=== PATIENT | female | born 1975 | race Hispanic/Latino ===

== ENCOUNTER 2016-12-06 22:31 | Emergency (ER) | payer OTHER ==
[2016-12-06 22:38] VITALS: BP 186/65; PULSE 116; RESP 17; TEMP 97.9; O2SAT 98
--- NOTE | 2016-12-06 23:33 | ED PDOC ---
HPI: Wound Care - HPI Time Seen by Provider: 12/06/16 23:24 Chief Complaint (Nursing): Abnormal Skin Integrity Chief Complaint (Provider): abscess History Per: Patient Additional Complaint(s): 41yo F in ED for eval of worsening abscess wtih redness an pain to lower abd x 4days. admits she tried to pick at it, but became worse. denies fever, chills, nausea or vomiting. admits to [facility]. Against Medical Advice - AMA Patient Left Against Medical Advice: The patient declines admission to the hospital and wishes to leave the Emergency Department. This action is against my medical advice. This decision was made with informed refusal. The patient was told that admission to the hospital is necessary. Explanation of the reasons why were discussed. The risks of leaving were explained to the patient and include, but are not limited to, worsening of known or currently unknown conditions, permanent disability and from undiagnosed or untreated conditions. The patient has the capacity to make this informed decision and understands my explanation of the current medical problem and risks of leaving. The patient voluntarily accepts these risks and signed an AMA form documenting our conversation. The patient was given the opportunity to ask questions and reconsider. The patient was encouraged to return to the Emergency Department at any time for further care. Past Medical History Reviewed: Historical Data, Nursing Documentation, Vital Signs Vital Signs: Last Vital Signs Temp 97.9 F 12/06/16 22:35 Pulse 116 H 12/06/16 22:35 Resp 17 12/06/16 22:35 BP 186/65 H 12/06/16 22:35 Pulse Ox 98 12/06/16 22:35 - Medical History PMH: Anxiety, Asthma, Bipolar Disorder, Diabetes, HTN Denies: Chronic Kidney Disease - Family History Family History: States: Unknown Family Hx - Immunization History Hx Tetanus Toxoid Vaccination: No Hx Influenza Vaccination: No Hx Pneumococcal Vaccination: No - Home Medications Home Medications: Ambulatory Orders Medication Instructions Recorded No Known Home Med 0 tab PO DAILY 03/22/15 Vitamins2 [Prenate Ultra] 1 tab PO DAILY #30 tab 03/22/15 Guaifenesin/Pseudoephedrne HCl 1 tab PO DAILY PRN #30 ter 02/14/16 [Mucinex D 600 mg-60 mg] Promethazine HCl/Codeine 5 ml PO HS #80 ml 02/14/16 [Promethazine HCl-Codeine Phosphate 10 mg/5 ml] Methyl Salicylate/Menthol [Icy Hot 1 cre TP DAILY #1 cre 02/17/16 10%-30%] guaiFENesin [guaifENESIN] 100 mg PO DAILY #30 udc 02/17/16 Cephalexin [cephalexin] 500 mg PO BID #20 cap 12/06/16 Sulfamethoxazole/Trimethoprim 1 tab PO BID #14 tab 12/06/16 [Bactrim DS 800 mg-160 mg] - Allergies Allergies/Adverse Reactions: Allergies Allergy/AdvReac Type Severity Reaction Status Date / Time No Known Allergies Allergy Verified 07/09/14 06:43 Review of Systems ROS Statement: Except As Marked, All Systems Reviewed And Found Negative Constitutional: Negative for: Fever, Chills Skin: Positive for: Lesions Physical Exam - Reviewed Nursing Documentation Reviewed: Yes Vital Signs Reviewed: Yes - Physical Exam Appears: Positive for: Non-toxic, No Acute Distress, Uncomfortable (in pain) Head Exam: Positive for: ATRAUMATIC, NORMAL INSPECTION, NORMOCEPHALIC Skin: Positive for: Normal Color, Warm, DRY Cardiovascular/Chest: Positive for: Regular Rate, Rhythm Respiratory: Positive for: CNT, Normal Breath Sounds Gastrointestinal/Abdominal: Positive for: Other (mid abdominal area-streaking, warmth, with central lesions with drainage of blood and pus 2x2. ) Neurologic/Psych: Positive for: Alert, Oriented - ECG O2 Sat by Pulse Oximetry: 98 Medical Decision Making Medical Decision Making: pt refuses blood work, IV abx or imagining. Pt explained the risk of infection and possibility of infection in blood strem and or . Pt states her children are alone in the house and she will come back tomorrow for further eval and is requesting pain control and abx. Pt again explained the risk, but will sign out AMA. will be d/c with kelfex and bactirm advised to f.u with pmd and advised to use warm compress Disposition - Clinical Impression Clinical Impression: Abscess, Cellulitis - Patient ED Disposition Is Patient to be Admitted: No Counseled Patient/Family Regarding: Need For Followup, Rx Given - Disposition Disposition: Routine/Home Disposition Time: 23:38 Condition: UNKNOWN Prescriptions: Sulfamethoxazole/Trimethoprim [Bactrim DS 800 mg-160 mg] 1 tab PO BID #14 tab Cephalexin [cephalexin] 500 mg PO BID #20 cap Instructions: Abscess (ED)
[2016-12-06] MEDS ORDERED: Tmp-Smz 800 mg-160 mg DS Tab ONE (23:34)
[2016-12-06] MEDS ORDERED: Tmp-Smz 800 mg-160 mg DS Tab PO STA (23:37)
== END 2016-12-06 23:59 | disposition left against medical advice (07) ==
LOC: H.ER 22:31
DX: L02.91 Cutaneous abscess, unspecified (principal); E11.9 Type 2 diabetes mellitus without complications; F31.9 Bipolar disorder, unspecified; I10 Essential (primary) hypertension

== ENCOUNTER 2017-01-31 13:00 | Emergency (ER) | payer MEDICAID, OTHER ==
[2017-01-31 13:07] VITALS: TEMP 98
[2017-01-31] MEDS ORDERED: Sodium Chloride 0.9% 1,000 ML IV STA (13:25)
--- NOTE | 2017-01-31 13:33 | ED PDOC ---
HPI: Psych/Substance Abuse Time Seen by Provider: 01/31/17 13:20 Chief Complaint (Nursing): Substance Abuse Chief Complaint (Provider): Substance Abuse History Per: Patient History/Exam Limitations: no limitations Onset/Duration Of Symptoms: Hrs (prior to arrival ) Additional History Per: EMS Additional Complaint(s): 13:20 Aida Porter, 42 year old female accompanied by EMS presents to the ED on 01/31. The patient was found sitting in the street by EMS. The patient states that she became dazed and dizzy after ingestion of Tramadol this morning. She denies any other ingestion of substance, headache, chest pain, palpitations, or any other medical complaints. The patient has a past medical history inclusive of diabetes, hypertension, asthma and bipolar disorder. The patient is awake and confused. Past Medical History Reviewed: Historical Data, Nursing Documentation, Vital Signs Vital Signs: Last Vital Signs Temp 98 F 01/31/17 13:04 Pulse 100 H 01/31/17 13:04 Resp 16 01/31/17 13:04 BP 170/100 H 01/31/17 13:04 Pulse Ox 98 01/31/17 13:04 - Medical History PMH: Anxiety, Asthma, Bipolar Disorder, Diabetes, HTN Denies: Alzheimer's Disease, Anemia, Arthritis, Atrial Fibrillation, Bronchitis, Cardia Arrhythmia, CHF, COPD, Crohn's Disease, Dementia, Depression , Diverticulitis, Emphysema, Fractures, Gastritis, Gall Bladder Disease, HIV, Hypercholesterolemia, Hyperthyroidism, Hypothyroidism, Kidney Stones, Migraine, Mitral Valve Prolapse, Multiple Sclerosis, Osteoporosis, Pancreatitis, Paranoia , Parkinson's Disease, Peripheral Edema, Pneumonia, Post Traumatic Stress Disorder, Pulmonary Embolism, Chronic Kidney Disease, Rheumatoid Arthritis, Schizophrenia, Seizures, Sickle Cell Disease, Sexually Transmitted Disease, Sleep Apnea, TIA - Surgical History Surgical History: Denies: Appendectomy, CABG, Carotid Endarterectomy, Cholecystectomy, Coronary Stent, Pacemaker, Tonsillectomy - Family History Family History: States: Unknown Family Hx - Immunization History Hx Tetanus Toxoid Vaccination: No Hx Influenza Vaccination: No Hx Pneumococcal Vaccination: No - Home Medications Home Medications: Ambulatory Orders Medication Instructions Recorded Albuterol HFA [Ventolin HFA 90 2 puff IH [id number] 01/21/17 mcg/actuation (8 g)] Alprazolam [Xanax] 2 mg PO 01/21/17 Budesonide/Formoterol Fumarate 1 aer IH 01/21/17 [Symbicort] oxyCODONE [oxyCODONE Immediate 30 mg PO BID 01/21/17 Release Tab] traMADol [Ultram] 50 mg PO TID PRN #15 tab 01/22/17 - Allergies Allergies/Adverse Reactions: Allergies Allergy/AdvReac Type Severity Reaction Status Date / Time No Known Allergies Allergy Verified 12/14/16 03:41 Review of Systems Cardiovascular: Negative for: Chest Pain, Palpitations Neurological: Positive for: Dizziness, Other (dazed; awake and confused ). Negative for: Headache Physical Exam - Reviewed Nursing Documentation Reviewed: Yes Vital Signs Reviewed: Yes - Physical Exam Appears: Positive for: Non-toxic, No Acute Distress Head Exam: Positive for: ATRAUMATIC, NORMOCEPHALIC Skin: Positive for: Normal Color, Warm, Dry Eye Exam: Positive for: Normal appearance, PERRL ENT: Positive for: Normal ENT Inspection Neck: Positive for: Normal, Painless ROM Cardiovascular/Chest: Positive for: Regular Rate, Rhythm, Chest Non Tender. Negative for: Gallop, Murmur Respiratory: Positive for: Normal Breath Sounds. Negative for: Respiratory Distress Gastrointestinal/Abdominal: Positive for: Normal Exam, Soft. Negative for: Tenderness Back: Positive for: Normal Inspection Extremity: Positive for: Normal ROM Neurologic/Psych: Positive for: Alert (awake), Oriented (x1), Other (slurred speech). Negative for: Motor/Sensory Deficits (and no focal deficits ) - Laboratory Results Result Diagrams: 01/31/17 14:00 01/31/17 14:00 - ECG O2 Sat by Pulse Oximetry: 98 (RA) Pulse Ox Interpretation: Normal - Progress Re-evaluation Time: 17:41 Condition: Improved (Awake alert oriented x 3 no focal neuro deficits. Denies SI /HI) Medical Decision Making Medical Decision Makin:20 Initial Impression: 42 year old female accompanied by EMS with confusion, dazed look, and dizziness. Initial Plan: * ED EKG Stat * Alcohol Serum Stat * COMP Metabolic Panel Stat * Drug Screen, Urine Stat * ED Urine (POC) Stat * ED Urine Dipstick (POC) Stat * CBC (With Differential) Stat * Sodium Chloride 0.9% 1,000 ml IV 100 mls/hr * Reevaluation Scribe Attestation: Documented by Steph Manuel, acting as a scribe for Antonio Santiago MD. Provider Scribe Attestation: All medical record entries made by the Scribe were at my direction and personally dictated by me. I have reviewed the chart and agree that the record accurately reflects my personal performance of the history, physical exam, medical decision making, and the department course for this patient. I have also personally directed, reviewed, and agree with the discharge instructions and disposition. Disposition - Clinical Impression Clinical Impression: Polysubstance abuse - Patient ED Disposition Is Patient to be Admitted: No Counseled Patient/Family Regarding: Studies Performed, Diagnosis, Need For Followup, Rx Given - Disposition Referrals: [facility] [Outside] Disposition: Routine/Home Disposition Time: 17:42 Condition: FAIR Instructions: Polysubstance Abuse (ED)
[2017-01-31 14:14] LABS: BASO % 0.2 % (0.0-2.0); EOS # 0.2 K/uL (0.0-0.7); EOS % 1.5 % (0.0-4.0); HEMATOCRIT 43.5 % (34.0-47.0); LYMPH # 4.4 K/uL (1.0-4.3); LYMPH % 32.4 % (20.0-40.0); MEAN CELL VOLUME 89.7 fl (81.0-99.0); MEAN CORPUSCULAR HEMOGLOBIN 29.6 pg (27.0-31.0); MEAN PLATELET VOLUME 10.5 fl (7.2-11.7); MONO # 0.9 K/uL (0.0-0.8); MONO % 6.3 % (0.0-10.0); NEUT # 8.2 K/uL (1.8-7.0); NEUT % 59.6 % (50.0-75.0); NRBC % 0.1 % (0.0-0.0); RED CELL DISTRIBUTION WIDTH 14.2 % (11.5-14.5); WHITE BLOOD COUNT 13.7 K/uL (4.8-10.8)
[2017-01-31 14:23] LABS: ALB/GLOB RATIO 1.5 (1.0-2.1); ALCOHOL SERUM < 10 mg/dl (0-10); ALKALINE PHOSPHATASE 93 U/L (38-126); ALT/SGPT 36 U/L (9-52); AST/SGOT 22 U/L (14-36); BILIRUBIN,TOTAL 0.9 mg/dl (0.2-1.3); BLOOD UREA NITROGEN 10 mg/dl (7-17); CALCIUM 9.5 mg/dL (8.4-10.2); CARBON DIOXIDE 23 mmol/L (22-30); CHLORIDE 105 mmol/L (98-107); GFR AFRICAN-AMERICAN > 60; GLUCOSE,RANDOM 95 mg/dL (65-105); POTASSIUM 4.2 MMOL/L (3.6-5.0); SODIUM 141 mmol/l (132-148); TOTAL PROTEIN 7.9 G/DL (6.3-8.2)
[2017-01-31 18:36] VITALS: BP 152/90; PULSE 90; RESP 18; O2SAT 99
--- NOTE | 2017-02-01 01:18 | CARD ---
APPROVED REPORT EKG Measurement Heart [id number] <Conclusion> Normal sinus rhythm Possible Left atrial enlargement Anteroseptal infarct, age undetermined Abnormal ECG
== END 2017-01-31 18:00 | disposition home or self-care (01) ==
LOC: H.ER 13:00
DX: F19.10 Other psychoactive substance abuse, uncomplicated (principal); E11.9 Type 2 diabetes mellitus without complications; F31.9 Bipolar disorder, unspecified; F41.9 Anxiety disorder, unspecified; I10 Essential (primary) hypertension; J45.909 Unspecified asthma, uncomplicated; R42 Dizziness and giddiness

== ENCOUNTER 2017-04-09 04:51 | Emergency (ER) | payer MEDICAID ==
[2017-04-09 04:59] VITALS: BP 173/88; RESP 16; TEMP 97.3; O2SAT 96
[2017-04-09] MEDS ORDERED: Albuterol-Ipratrop 3 mg / 0.5 (3 ml) UD INH STA (05:21)
[2017-04-09 06:06] VITALS: PULSE 72
--- NOTE | 2017-04-09 06:06 | ED PDOC ---
HPI: Psych/Substance Abuse Time Seen by Provider: 04/09/17 05:08 Chief Complaint (Nursing): Chest Pain History Per: Patient, EMS History/Exam Limitations: no limitations Onset/Duration Of Symptoms: Days (1) Current Symptoms Are (Timing): Better Suicide/Self Injury Attempted (Context): None Modifying Factor(s): None Severity: Mild Pain Scale Rating Of: 0 Associated Symptoms: Anxiety Involuntary Hold By: Local [employer] Past Medical History Reviewed: Historical Data, Nursing Documentation, Vital Signs Vital Signs: Last Vital Signs Temp 97.3 F L 04/09/17 04:53 Pulse 82 04/09/17 04:53 Resp 16 04/09/17 04:53 BP 173/88 H 04/09/17 04:53 Pulse Ox 96 04/09/17 04:53 - Medical History PMH: Anxiety, Asthma, Bipolar Disorder, Diabetes, HTN Denies: Alzheimer's Disease, Anemia, Arthritis, Atrial Fibrillation, Bronchitis, Cardia Arrhythmia, CHF, COPD, Crohn's Disease, Dementia, Depression , Diverticulitis, Emphysema, Fractures, Gastritis, Gall Bladder Disease, HIV, Hypercholesterolemia, Hyperthyroidism, Hypothyroidism, Kidney Stones, Migraine, Mitral Valve Prolapse, Multiple Sclerosis, Osteoporosis, Pancreatitis, Paranoia , Parkinson's Disease, Peripheral Edema, Pneumonia, Post Traumatic Stress Disorder, Pulmonary Embolism, Chronic Kidney Disease, Rheumatoid Arthritis, Schizophrenia, Seizures, Sickle Cell Disease, Sexually Transmitted Disease, Sleep Apnea, TIA - Surgical History Surgical History: Denies: Appendectomy, CABG, Carotid Endarterectomy, Cholecystectomy, Coronary Stent, Pacemaker, Tonsillectomy - Family History Family History: States: Unknown Family Hx - Immunization History Hx Tetanus Toxoid Vaccination: No Hx Influenza Vaccination: No Hx Pneumococcal Vaccination: No - Home Medications Home Medications: Ambulatory Orders Medication Instructions Recorded Albuterol HFA [Ventolin HFA 90 2 puff IH [id number] 01/21/17 mcg/actuation (8 g)] Alprazolam [Xanax] 2 mg PO 01/21/17 Budesonide/Formoterol Fumarate 1 aer IH 01/21/17 [Symbicort] oxyCODONE [oxyCODONE Immediate 30 mg PO BID 01/21/17 Release Tab] traMADol [Ultram] 50 mg PO TID PRN #15 tab 01/22/17 - Allergies Allergies/Adverse Reactions: Allergies Allergy/AdvReac Type Severity Reaction Status Date / Time No Known Allergies Allergy Verified 12/14/16 03:41 Review of Systems ROS Statement: Except As Marked, All Systems Reviewed And Found Negative Cardiovascular: Positive for: Chest Pain Respiratory: Positive for: Shortness of Breath Physical Exam - Reviewed Nursing Documentation Reviewed: Yes Vital Signs Reviewed: Yes - Physical Exam Appears: Positive for: Well, Non-toxic, No Acute Distress Skin: Positive for: Warm, Dry Eye Exam: Positive for: EOMI, PERRL Cardiovascular/Chest: Positive for: Regular Rate, Rhythm. Negative for: Tachycardia Respiratory: Positive for: Normal Breath Sounds, Wheezing. Negative for: Rales , Rhonchi Gastrointestinal/Abdominal: Positive for: Soft. Negative for: Tenderness Extremity: Positive for: Normal ROM Neurologic/Psych: Positive for: Alert, Oriented - ECG ECG: Positive for: Interpreted By Me, Viewed By Me ECG Rhythm: Positive for: Normal QRS, Normal ST Segment, Sinus Rhythm. Negative for: Nonspecific Changes Rate: 72 O2 Sat by Pulse Oximetry: 96 - Progress Re-evaluation Time: 06:00 Condition: Re-examined, Improved Disposition - Clinical Impression Clinical Impression: Asthma - Disposition Referrals: Jemal Gordillo MD [Primary Care Provider] - Disposition Time: 06:00 Condition: GOOD Additional Instructions: Patient is medically and psychiatrically clear for incarceration. Instructions: Asthma (ED)
--- NOTE | 2017-04-09 10:08 | CARD ---
APPROVED REPORT EKG Measurement Heart [id number] <Conclusion> Normal sinus rhythm Anterior infarct, age undetermined Abnormal ECG
== END 2017-04-09 06:18 ==
LOC: H.ER 04:51
DX: J45.909 Unspecified asthma, uncomplicated (principal); E11.9 Type 2 diabetes mellitus without complications; F31.9 Bipolar disorder, unspecified; F41.9 Anxiety disorder, unspecified; I10 Essential (primary) hypertension

== ENCOUNTER 2017-06-13 11:43 | Emergency (ER) | payer MEDICAID ==
[2017-06-13 11:55] VITALS: BP 150/107; PULSE 94; RESP 18; TEMP 97.6; O2SAT 100
[2017-06-13] MEDS ORDERED: Sodium Chloride 0.9% 1,000 ML IV STA (12:21)
[2017-06-13 13:23] LABS: BASO # 0.2 K/uL (0.0-0.2); BASO % 1.1 % (0.0-2.0); EOS # 0.3 K/uL (0.0-0.7); EOS % 2.3 % (0.0-4.0); HEMATOCRIT 45.6 % (34.0-47.0); LYMPH # 2.9 K/uL (1.0-4.3); LYMPH % 21.2 % (20.0-40.0); MEAN CORPUSCULAR HEMOGLOBIN 30.3 pg (27.0-31.0); MEAN CORPUSCULAR HGB CONC 32.6 g/dL (33.0-37.0); MEAN PLATELET VOLUME 9.8 fl (7.2-11.7); MONO # 0.8 K/uL (0.0-0.8); MONO % 5.9 % (0.0-10.0); NEUT # 9.6 K/uL (1.8-7.0); NEUT % 69.5 % (50.0-75.0); NRBC % 0.1 % (0.0-0.0); RED CELL DISTRIBUTION WIDTH 14.4 % (11.5-14.5); WHITE BLOOD COUNT 13.8 K/uL (4.8-10.8)
--- NOTE | 2017-06-13 13:28 | RAD ---
HISTORY: cough COMPARISON: No prior. TECHNIQUE: Chest PA and lateral FINDINGS: LUNGS: No active pulmonary disease. PLEURA: No significant pleural effusion identified. No pneumothorax apparent. CARDIOVASCULAR: Aorta is uncoiled. A portion of this may be related to obliquity of the radiograph. Heart is mildly enlarged. OSSEOUS STRUCTURES: No significant abnormalities. VISUALIZED UPPER ABDOMEN: Normal. OTHER FINDINGS: None. IMPRESSION: No focal infiltrate or CHF. Mild cardiomegaly. Possible Atherosclerotic change of the aorta.
[2017-06-13 13:32] LABS: ALB/GLOB RATIO 1.3 (1.0-2.1); ALKALINE PHOSPHATASE 84 U/L (38-126); ALT/SGPT 29 U/L (9-52); AST/SGOT 32 U/L (14-36); BILIRUBIN,TOTAL 0.9 mg/dl (0.2-1.3); BLOOD UREA NITROGEN 12 mg/dl (7-17); CALCIUM 9.7 mg/dL (8.4-10.2); CARBON DIOXIDE 23 mmol/L (22-30); CHLORIDE 106 mmol/L (98-107); GFR AFRICAN-AMERICAN > 60; GLUCOSE,RANDOM 128 mg/dL (65-105); SODIUM 144 mmol/l (132-148); TOTAL PROTEIN 8.2 G/DL (6.3-8.2)
[2017-06-13 13:38] LABS: POTASSIUM 4.4 MMOL/L (3.6-5.0)
--- NOTE | 2017-06-13 14:04 | ED PDOC ---
HPI: General Adult Time Seen by Provider: 06/13/17 12:08 Chief Complaint (Nursing): Flu-like Symptoms Chief Complaint (Provider): flu like symptoms Additional Complaint(s): 42yo F inEd with 3d of generalized body aches, subjective fever, swelling to LE , cough(nonproductive) and diarrhea with vomiting. sick contact is nephew with similar symptoms. no travel outside the [place] . PT states she urinate often unable to hold her urine. no hematuira. no CHRISTINE, dizziness, chills Past Medical History Reviewed: Historical Data, Nursing Documentation, Vital Signs Vital Signs: Last Vital Signs Temp 97.6 F 06/13/17 11:48 Pulse 94 H 06/13/17 11:48 Resp 18 06/13/17 11:48 BP 150/107 H 06/13/17 11:48 Pulse Ox 100 06/13/17 14:05 - Medical History PMH: Anxiety, Asthma, Bipolar Disorder, Diabetes, HTN Denies: Alzheimer's Disease, Anemia, Arthritis, Atrial Fibrillation, Bronchitis, Cardia Arrhythmia, CHF, COPD, Crohn's Disease, Dementia, Depression , Diverticulitis, Emphysema, Fractures, Gastritis, Gall Bladder Disease, Hepatitis, HIV, Hypercholesterolemia, Hyperthyroidism, Hypothyroidism, Kidney Stones, Migraine, Mitral Valve Prolapse, Multiple Sclerosis, Osteoporosis, Pancreatitis, Paranoia, Parkinson's Disease, Peripheral Edema, Pneumonia, Post Traumatic Stress Disorder, Pulmonary Embolism, Chronic Kidney Disease, Rheumatoid Arthritis, Schizophrenia, Seizures, Sickle Cell Disease, Sexually Transmitted Disease, Sleep Apnea, TIA - Surgical History Surgical History: Denies: Appendectomy, CABG, Carotid Endarterectomy, Cholecystectomy, Coronary Stent, Pacemaker, Tonsillectomy - Family History Family History: States: Unknown Family Hx - Immunization History Hx Tetanus Toxoid Vaccination: No Hx Influenza Vaccination: No Hx Pneumococcal Vaccination: No - Home Medications Home Medications: Ambulatory Orders Medication Instructions Recorded Albuterol HFA [Ventolin HFA 90 2 puff IH [id number] 01/21/17 mcg/actuation (8 g)] Alprazolam [Xanax] 2 mg PO 01/21/17 Budesonide/Formoterol Fumarate 1 aer IH 01/21/17 [Symbicort] oxyCODONE [oxyCODONE Immediate 30 mg PO BID 01/21/17 Release Tab] traMADol [Ultram] 50 mg PO TID PRN #15 tab 01/22/17 Nitrofurantoin Macrocrystals 100 mg PO BID #14 cap 06/13/17 [Macrobid] - Allergies Allergies/Adverse Reactions: Allergies Allergy/AdvReac Type Severity Reaction Status Date / Time No Known Allergies Allergy Verified 12/14/16 03:41 Review of Systems ROS Statement: Except As Marked, All Systems Reviewed And Found Negative Constitutional: Positive for: Fever, Malaise Gastrointestinal: Positive for: Vomiting, Diarrhea Skin: Negative for: Rash Physical Exam - Reviewed Nursing Documentation Reviewed: Yes Vital Signs Reviewed: Yes - Physical Exam Appears: Positive for: Non-toxic, No Acute Distress, Uncomfortable. Negative for: Well (unkept) Head Exam: Positive for: ATRAUMATIC, NORMAL INSPECTION, NORMOCEPHALIC Skin: Positive for: Normal Color, Warm, DRY Eye Exam: Positive for: EOMI, Normal appearance, PERRL ENT: Positive for: Normal ENT Inspection Neck: Positive for: Normal, Painless ROM Cardiovascular/Chest: Positive for: Regular Rate, Rhythm Respiratory: Positive for: CNT, Normal Breath Sounds Gastrointestinal/Abdominal: Positive for: Normal Exam, Bowel Sounds, Soft. Negative for: Tenderness Back: Positive for: Normal Inspection Extremity: Positive for: Normal ROM. Negative for: Swelling Neurologic/Psych: Positive for: Alert, Oriented - Laboratory Results Result Diagrams: 06/13/17 12:28 06/13/17 12:28 - ECG O2 Sat by Pulse Oximetry: 100 - Radiology X-Ray: Read By Radiologist X-Ray Interpretation: No Acute Disease, Cardiomegaly - Progress ED Course And Treament: PT given Orders Category Date Time Status COMP METABOLIC PANEL Stat Chem 06/13/17 12:28 Completed CHEST TWO VIEWS (PA/LAT) [RAD] Stat Exams 06/13/17 12:21 Completed CBC (WITH DIFFERENTIAL) Stat MAGGI 06/13/17 12:28 Completed Ketorolac [Toradol] Med 06/13/17 13:21 Discontinued 30 mg .ROUTE .STK-MED ONE Ketorolac [Toradol] Med 06/13/17 12:21 Discontinued 30 mg IVP STAT STA Sodium Chloride 0.9% 1,000 ml Med 06/13/17 12:21 Discontinued IV 1,000 mls/hr INFLUENZA A B Stat Serology 06/13/17 12:28 Completed URINALYSIS Stat URINALYSIS 06/13/17 12:21 Uncollected 06/13/17 06/13/17 06/13/17 12:28 12:28 12:28 WBC 13.8 H RBC 4.90 Hgb 14.9 Hct 45.6 MCV 93.0 D MCH 30.3 MCHC 32.6 L RDW 14.4 Plt Count 224 MPV 9.8 Neut % (Auto) 69.5 Lymph % (Auto) 21.2 Archuleta % (Auto) 5.9 Eos % (Auto) 2.3 Baso % (Auto) 1.1 Neut # 9.6 H Lymph # 2.9 Archuleta # 0.8 Eos # 0.3 Baso # 0.2 Sodium 144 Potassium 4.4 Chloride 106 Carbon Dioxide 23 Anion Gap 20 BUN 12 Creatinine 0.6 L Est GFR ( Amer) > 60 Est GFR (Non-Af Amer) > 60 Random Glucose 128 H Calcium 9.7 Total Bilirubin 0.9 AST 32 ALT 29 Alkaline Phosphatase 84 Total Protein 8.2 Albumin 4.7 Globulin 3.5 Albumin/Globulin Ratio 1.3 Influenza Typ A,B (EIA) Negative for flu a/b torodol and IV fluids for hydration. Medical Decision Making Medical Decision Making: PT improved in ED. refuses to give urine, however with c/o of dysuria will get macrobid and d.c home. pt sleeping in ED stable VS Disposition - Clinical Impression Clinical Impression: UTI (urinary tract infection) - Patient ED Disposition Is Patient to be Admitted: No Counseled Patient/Family Regarding: Studies Performed, Diagnosis, Need For Followup, Rx Given - Disposition Disposition: Routine/Home Disposition Time: 15:12 Condition: STABLE Prescriptions: Nitrofurantoin Macrocrystals [Macrobid] 100 mg PO BID #14 cap Instructions: Urinary Tract Infection in Women (ED) Forms: [employer] (Bel[place]ian)
== END 2017-06-13 16:00 | disposition home or self-care (01) ==
LOC: H.ER 11:43
DX: N39.0 Urinary tract infection, site not specified (principal); R11.10 Vomiting, unspecified; E11.9 Type 2 diabetes mellitus without complications
CPT/HCPCS: 71020; 80053; 85025; 87804; 96374; 96375; 99282; J1885; J2270; J7040

== ENCOUNTER 2017-08-19 07:57 | Emergency (ER) | payer MEDICAID ==
[2017-08-19 08:04] VITALS: BP 158/87; PULSE 74; RESP 17; TEMP 98.1; BMI 31.5
[2017-08-19 08:09] VITALS: O2SAT 98
--- NOTE | 2017-08-19 08:25 | ED PDOC ---
HPI: General Adult Time Seen by Provider: 08/19/17 08:05 Chief Complaint (Nursing): Medical Clearance Chief Complaint (Provider): Medical Clearance History Per: Patient, Other (Jakob FENG) History/Exam Limitations: no limitations Onset/Duration Of Symptoms: Days (x 1) Additional Complaint(s): Aida Porter is a 42-year-old female, with a past medical history of diabetes, bipolar disorder, and chronic back pain, who was brought in by Jakob FENG for medical and psychiatric clearance. Patient states she was at [employer] with daughters father and was arrested for stolen headphones. Patient requesting medications for pain. She reports seeing pain management for her chronic back pain, and usually takes Percocet or Oxycodone (none taken today). No new pain, fall, injury, numbness, tingling, chest pain, shortness of breath, abdominal pain, or headache. Also denies any suicidal or homicidal ideation. PMD: None Past Medical History Reviewed: Historical Data, Nursing Documentation, Vital Signs Vital Signs: Last Vital Signs Temp 98.1 F 08/19/17 08:04 Pulse 74 08/19/17 08:04 Resp 17 08/19/17 08:04 BP 158/87 H 08/19/17 08:04 Pulse Ox 98 08/19/17 09:04 - Medical History PMH: Anxiety, Asthma, Back Problems, Bipolar Disorder, Diabetes, HTN Denies: Alzheimer's Disease, Anemia, Arthritis, Atrial Fibrillation, Bronchitis, Cardia Arrhythmia, CHF, COPD, Crohn's Disease, Dementia, Depression , Diverticulitis, Emphysema, Fractures, Gastritis, Gall Bladder Disease, Hepatitis, HIV, Hypercholesterolemia, Hyperthyroidism, Hypothyroidism, Kidney Stones, Migraine, Mitral Valve Prolapse, Multiple Sclerosis, Osteoporosis, Pancreatitis, Paranoia, Parkinson's Disease, Peripheral Edema, Pneumonia, Post Traumatic Stress Disorder, Pulmonary Embolism, Chronic Kidney Disease, Rheumatoid Arthritis, Schizophrenia, Seizures, Sickle Cell Disease, Sexually Transmitted Disease, Sleep Apnea, TIA - Surgical History Surgical History: Denies: Appendectomy, CABG, Carotid Endarterectomy, Cholecystectomy, Coronary Stent, Pacemaker, Tonsillectomy - Family History Family History: States: Unknown Family Hx - Social History Current smoker - smoking cessation education provided: Yes Alcohol: None Drugs: Other - Immunization History Hx Tetanus Toxoid Vaccination: No Hx Influenza Vaccination: No Hx Pneumococcal Vaccination: No - Home Medications Home Medications: Ambulatory Orders Medication Instructions Recorded Albuterol HFA [Ventolin HFA 90 2 puff IH [id number] 01/21/17 mcg/actuation (8 g)] Alprazolam [Xanax] 2 mg PO 01/21/17 Budesonide/Formoterol Fumarate 1 aer IH 01/21/17 [Symbicort] oxyCODONE [oxyCODONE Immediate 30 mg PO BID 01/21/17 Release Tab] traMADol [Ultram] 50 mg PO TID PRN #15 tab 01/22/17 Nitrofurantoin Macrocrystals 100 mg PO BID #14 cap 06/13/17 [Macrobid] - Allergies Allergies/Adverse Reactions: Allergies Allergy/AdvReac Type Severity Reaction Status Date / Time No Known Allergies Allergy Verified 08/19/17 08:04 Review of Systems ROS Statement: Except As Marked, All Systems Reviewed And Found Negative Constitutional: Negative for: Other (fall, injury) Cardiovascular: Negative for: Chest Pain Respiratory: Negative for: Shortness of Breath Gastrointestinal: Negative for: Nausea, Vomiting, Abdominal Pain, Diarrhea Musculoskeletal: Positive for: Back Pain. Negative for: Leg Pain Neurological: Negative for: Weakness, Numbness (or tingling), Headache Psych: Negative for: Suicidal ideation Physical Exam - Reviewed Nursing Documentation Reviewed: Yes Vital Signs Reviewed: Yes - Physical Exam Appears: Positive for: Non-toxic, No Acute Distress Head Exam: Positive for: ATRAUMATIC, NORMAL INSPECTION, NORMOCEPHALIC Skin: Positive for: Normal Color, Warm, Dry Eye Exam: Positive for: EOMI, Normal appearance, PERRL Neck: Positive for: Normal, Painless ROM, Supple Cardiovascular/Chest: Positive for: Regular Rate, Rhythm. Negative for: Murmur Respiratory: Positive for: Normal Breath Sounds. Negative for: Accessory Muscle Use, Respiratory Distress Gastrointestinal/Abdominal: Positive for: Normal Exam, Soft. Negative for: Tenderness Back: Positive for: Normal Inspection, Other (Mild tenderness to left and right lower lateral regions). Negative for: L CVA Tenderness, R CVA Tenderness, Vertebral Tenderness Extremity: Positive for: Normal ROM. Negative for: Pedal Edema, Deformity Neurologic/Psych: Positive for: Alert, Oriented. Negative for: Motor/Sensory Deficits - ECG O2 Sat by Pulse Oximetry: 98 (RA) Pulse Ox Interpretation: Normal - Progress ED Course And Treament: 915: Chronic pain issues. Brought to the ED by police for clearance. Pt. has no acute complaints. AAOx3. Fu with pcp. Ambulated with no issues. Medical Decision Making Medical Decision Making: Time: 8:19 Initial Impression: Medical & Psychiatric Clearance Initial Plan: * Accucheck * Toradol 15 mg IM * Pending crisis evaluation Finger stick was 94. 9:01 Discussed w/ mechanical repair worker. Patient has psychiatric clearance for incarceration per Dr. Holbrook. Clinical Impression: Anxiety Scribe Attestation: Documented by Valencia Girard, acting as a scribe for Ajit Warren MD Provider Scribe Attestation: All medical record entries made by the Scribe were at my direction and personally dictated by me. I have reviewed the chart and agree that the record accurately reflects my personal performance of the history, physical exam, medical decision making, and the department course for this patient. I have also personally directed, reviewed, and agree with the discharge instructions and disposition. Disposition - Clinical Impression Clinical Impression: Chronic back pain - Patient ED Disposition Is Patient to be Admitted: No Counseled Patient/Family Regarding: Diagnosis, Need For Followup - Disposition Referrals: [facility] [Outside] - 08/23/17 Disposition: Routine/Home Disposition Time: 09:16 Condition: STABLE Additional Instructions: You are medically and psychiatrically cleared for incarceration. Return if not better in 3 days. Instructions: Chronic Back Pain (ED)
== END 2017-08-19 09:49 | disposition home or self-care (01) ==
LOC: H.ER 07:57
DX: M54.9 Dorsalgia, unspecified (principal); E11.9 Type 2 diabetes mellitus without complications; G89.29 Other chronic pain; F17.200 Nicotine dependence, unspecified, uncomplicated; F31.9 Bipolar disorder, unspecified; F41.9 Anxiety disorder, unspecified; I10 Essential (primary) hypertension; J45.909 Unspecified asthma, uncomplicated
CPT/HCPCS: 81025; 82948; 96372; 99282; J1885

== ENCOUNTER 2018-03-01 01:51 | Emergency (ER) | payer MEDICAID ==
[2018-03-01 01:51] VITALS: BMI 31.5
[2018-03-01 02:26] VITALS: RESP 16; O2SAT 98
--- NOTE | 2018-03-01 02:42 | ED PDOC ---
HPI: Psych/Substance Abuse Time Seen by Provider: 03/01/18 02:31 Chief Complaint (Nursing): Medical Clearance Chief Complaint (Provider): clearance for incarceration History Per: Patient, Other (PD) Additional Complaint(s): 43 y/o female here in police custody for medical and psychiatric clearance for incarceration. Patient arrested for shop lifting and found to have crack pipe on her. Patient states she took two of her prescribed xanax and smoke crack tonight. Patient sleeping but arousable to tactile stimuli; denies acute medical or psychiatric complaints. Past Medical History Reviewed: Historical Data, Nursing Documentation, Vital Signs Vital Signs: Last Vital Signs Temp 98.2 F 03/01/18 02:20 Pulse 79 03/01/18 02:20 Resp 16 03/01/18 02:20 BP 151/77 H 03/01/18 02:20 Pulse Ox 98 03/01/18 02:20 - Medical History PMH: Anxiety, Asthma, Back Problems, Bipolar Disorder, Diabetes, HTN Denies: Alzheimer's Disease, Anemia, Arthritis, Atrial Fibrillation, Bronchitis, Cardia Arrhythmia, CHF, COPD, Crohn's Disease, Dementia, Depression , Diverticulitis, Emphysema, Fractures, Gastritis, Gall Bladder Disease, Hepatitis, HIV, Hypercholesterolemia, Hyperthyroidism, Hypothyroidism, Kidney Stones, Migraine, Mitral Valve Prolapse, Multiple Sclerosis, Osteoporosis, Pancreatitis, Paranoia, Parkinson's Disease, Peripheral Edema, Pneumonia, Post Traumatic Stress Disorder, Pulmonary Embolism, Chronic Kidney Disease, Rheumatoid Arthritis, Schizophrenia, Seizures, Sickle Cell Disease, Sexually Transmitted Disease, Sleep Apnea, TIA - Surgical History Surgical History: Denies: Appendectomy, CABG, Carotid Endarterectomy, Cholecystectomy, Coronary Stent, Pacemaker, Tonsillectomy - Family History Family History: States: Unknown Family Hx - Immunization History Hx Tetanus Toxoid Vaccination: No Hx Influenza Vaccination: No Hx Pneumococcal Vaccination: No - Home Medications Home Medications: Ambulatory Orders Medication Instructions Recorded Albuterol HFA [Ventolin HFA 90 2 puff IH [id number] 01/21/17 mcg/actuation (8 g)] Alprazolam [Xanax] 2 mg PO 01/21/17 Budesonide/Formoterol Fumarate 1 aer IH 01/21/17 [Symbicort] oxyCODONE [oxyCODONE Immediate 30 mg PO BID 01/21/17 Release Tab] traMADol [Ultram] 50 mg PO TID PRN #15 tab 01/22/17 Nitrofurantoin Macrocrystals 100 mg PO BID #14 cap 06/13/17 [Macrobid] - Allergies Allergies/Adverse Reactions: Allergies Allergy/AdvReac Type Severity Reaction Status Date / Time No Known Allergies Allergy Verified 08/19/17 08:04 Review of Systems ROS Statement: Except As Marked, All Systems Reviewed And Found Negative Physical Exam - Reviewed Nursing Documentation Reviewed: Yes Vital Signs Reviewed: Yes - Physical Exam Appears: Positive for: Well, Non-toxic, No Acute Distress (sleeping) Head Exam: Positive for: ATRAUMATIC, NORMAL INSPECTION, NORMOCEPHALIC Skin: Positive for: Normal Color Eye Exam: Positive for: Normal appearance, EOMI, PERRL ENT: Positive for: Normal ENT Inspection Cardiovascular/Chest: Positive for: Regular Rate, Rhythm Respiratory: Positive for: Normal Breath Sounds Gastrointestinal/Abdominal: Positive for: Normal Exam Back: Positive for: Normal Inspection Extremity: Positive for: Normal ROM Neurologic/Psych: Positive for: Alert, Oriented (responds to tactile stimuli) - ECG O2 Sat by Pulse Oximetry: 98 - Progress ED Course And Treament: accucheck Patient evaluated by tube worker and cleared for d/c as per Dr. Blount Clonidine PO ordered for elevated BP on re-eval Disposition - Clinical Impression Clinical Impression: Polysubstance abuse, Hypertension - Patient ED Disposition Is Patient to be Admitted: No Counseled Patient/Family Regarding: Studies Performed, Diagnosis, Need For Followup - Disposition Disposition Time: 06:03 Condition: STABLE Patient Signed Over To: Eric Espinal Handoff Comments: pending repeat BP
--- NOTE | 2018-03-01 06:16 | ED PDOC ---
- ECG O2 Sat by Pulse Oximetry: 98 Medical Decision Making Medical Decision Makin Patient under the direct care of this provider, endorsed from DANIELA Dyson pending resolution of hypertensive episode. 0625 Upon re-evaluation, patient's vitals are stable. Patient's blood pressure has gone down. Patient is stable for discharge into police custody. Dx: hypertension Scribe Attestation: Documented by Kenna Enriquez acting as a scribe for Eric Espinal MD. Scribe Attestation: All medical record entries made by the Scribe were at my direction and personally dictated by me. I have reviewed the chart and agree that the record accurately reflects my personal performance of the history, physical exam, medical decision making, and the department course for this patient. I have also personally directed, reviewed, and agree with the discharge instructions and disposition. Disposition - Clinical Impression Clinical Impression: Polysubstance abuse, Hypertension - POA Present On Arrival: None - Disposition Disposition: Discharged/Transfer to Law Enforcement Disposition Time: 06:30 Condition: STABLE Additional Instructions: follow up with your doctor in 2 days return to ED with any concerns you are medically and psychologically cleared for incarceration Instructions: High Blood Pressure (DC), General (DC), Polysubstance Abuse (DC) Forms: [employer] (Anguillan)
[2018-03-01 06:23] VITALS: BP 159/94; PULSE 76; TEMP 98
== END 2018-03-01 06:26 ==
LOC: H.ER 01:51
DX: F19.10 Other psychoactive substance abuse, uncomplicated (principal); I10 Essential (primary) hypertension; E11.9 Type 2 diabetes mellitus without complications; F31.9 Bipolar disorder, unspecified; F41.9 Anxiety disorder, unspecified; J45.909 Unspecified asthma, uncomplicated

== ENCOUNTER 2018-03-21 18:19 | Emergency (ER) | payer MEDICAID, OTHER ==
[2018-03-21 18:19] VITALS: BMI 31.5
[2018-03-21 18:29] VITALS: BP 180/92; PULSE 100; RESP 18; TEMP 98.3; O2SAT 99
[2018-03-21] MEDS ORDERED: Tdap Vaccine 0.5 ml Vial (10-64 yrs) IM ONE (19:17)
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
== END 2018-03-21 19:17 | disposition left against medical advice (07) ==
LOC: H.ER 18:19
DX: S01.312A Laceration without foreign body of left ear, initial encounter (principal); S09.90XA Unspecified injury of head, initial encounter; E11.9 Type 2 diabetes mellitus without complications; Z86.59 Personal history of other mental and behavioral disorders; I10 Essential (primary) hypertension; J45.909 Unspecified asthma, uncomplicated; Y04.0XXA Assault by unarmed brawl or fight, initial encounter; Z23 Encounter for immunization

== ENCOUNTER 2018-04-12 10:04 | Emergency (ER) | payer MEDICAID ==
[2018-04-12 10:14] VITALS: BMI 30.6
[2018-04-12 10:15] VITALS: BP 141/106; PULSE 74; RESP 16; TEMP 98.2; O2SAT 96
--- NOTE | 2018-04-12 10:57 | ED PDOC ---
HPI: General Adult Time Seen by Provider: 04/12/18 10:42 Chief Complaint (Nursing): Medical Clearance Chief Complaint (Provider): medical and pyschiatric clearance History Per: Patient Additional Complaint(s): 43-year-old female presents for medical and psychiatric clearance. Patient is currently under arrest and in police custody. She has history of anxiety and states that she feels slightly anxious at this moment. She offers no other medical complaints at this time. Patient denies suicidal or homicidal ideation. Past Medical History Reviewed: Historical Data, Nursing Documentation, Vital Signs Vital Signs: Last Vital Signs Temp 98.2 F 04/12/18 10:14 Pulse 74 04/12/18 10:14 Resp 16 04/12/18 10:14 BP 141/106 H 04/12/18 10:14 Pulse Ox 96 04/12/18 10:59 - Medical History PMH: Anxiety, Asthma, Back Problems, Bipolar Disorder, Diabetes, HTN - Surgical History Surgical History: - Family History Family History: States: Unknown Family Hx - Social History Current smoker - smoking cessation education provided: Yes Alcohol: None Drugs: Denies - Home Medications Home Medications: Ambulatory Orders Medication Instructions Recorded Albuterol HFA [Ventolin HFA 90 2 puff IH [id number] 01/21/17 mcg/actuation (8 g)] Alprazolam [Xanax] 2 mg PO DAILY 01/21/17 Xanax 03/04/18 - Allergies Allergies/Adverse Reactions: Allergies Allergy/AdvReac Type Severity Reaction Status Date / Time FISH Allergy RASH Verified 03/21/18 18:27 Review of Systems ROS Statement: Except As Marked, All Systems Reviewed And Found Negative Constitutional: Negative for: Fever Cardiovascular: Negative for: Chest Pain Respiratory: Negative for: Cough Gastrointestinal: Negative for: Nausea, Vomiting Psych: Positive for: Anxiety. Negative for: Suicidal ideation Physical Exam - Reviewed Nursing Documentation Reviewed: Yes Vital Signs Reviewed: Yes - Physical Exam Appears: Positive for: Well, Non-toxic, No Acute Distress Skin: Positive for: Normal Color. Negative for: Rash Eye Exam: Positive for: Normal appearance Cardiovascular/Chest: Positive for: Regular Rate, Rhythm Respiratory: Positive for: Normal Breath Sounds. Negative for: Wheezing, Respiratory Distress Neurologic/Psych: Positive for: Alert, Oriented - ECG O2 Sat by Pulse Oximetry: 96 Pulse Ox Interpretation: Normal Medical Decision Making Medical Decision Makin-year-old female here for medical and psychiatric clearance. Police officers at bedside. Plan: Crisis consult As per crisis counselor and psychiatrist [employer] Dr. Holbrook, patient does not meet criteria for psychiatric admission and is stable for discharge. Patient is medically and psychiatrically stable for incarceration. Disposition - Clinical Impression Clinical Impression: Anxiety, Medical clearance for incarceration - Patient ED Disposition Is Patient to be Admitted: No - Disposition Referrals: [facility] [Outside] Disposition: Discharged/Transfer to Law Enforcement Disposition Time: 11:15 Condition: STABLE Additional Instructions: Patient is medically and psychiatrically stable for incarceration. Instructions: Anxiety, Adult (DC), General (DC) Forms: [email or web address] ([email or web address])
== END 2018-04-12 11:35 ==
LOC: H.ER 10:04
DX: F41.9 Anxiety disorder, unspecified (principal); Z00.8 Encounter for other general examination; E11.9 Type 2 diabetes mellitus without complications; F17.200 Nicotine dependence, unspecified, uncomplicated; Z86.59 Personal history of other mental and behavioral disorders; J45.909 Unspecified asthma, uncomplicated; I10 Essential (primary) hypertension